=== PATIENT | male | born 1950 | race Caucasian/White ===

== ENCOUNTER → 2016-09-16 | Outpatient (CLI) | payer OTHER ==
--- NOTE | 2016-09-16 09:24 | Diagnostic Imaging Report ---
INDICATION: Abdominal aortic screening. Multiple real-time and grayscale images are obtained through the abdominal aorta. AVAILABLE COMPARISONS: None. The proximal, mid, and distal abdominal aortic dimensions are 1.8 x 1.8 x 1.8 cm, respectively. There is no aneurysm. Common iliac diameters are within normal limits. IMPRESSION: Negative for abdominal aortic aneurysm. Dictated by: Dictated on workstation # [id number]
== END ==
LOC: RAD 07:27
PROVIDERS: ATTEND Physician Assistant
DX: Z13.6 Encounter for screening for cardiovascular disorders (principal)